=== PATIENT | female | born 1945 | race Caucasian/White ===

== ENCOUNTER 2019-05-19 08:12 | Day surgery (SDC) | payer OTHER ==
[2019-05-14 11:15] VITALS: BMI 29.7
[2019-05-19] MEDS: CYCLOPENTOLATE HCL 1% OPHTH SOLN 2 ML BOTTLE ONE ×4 (08:50→09:05)
[2019-05-19] MEDS: OFLOXACIN 0.3% OPHTHALMIC SOLUTION 5 ML BOTTLE ONE ×4 (08:50→09:05)
[2019-05-19] MEDS: PHENYLEPHRINE 2.5% OPHTH SOLN 15 ML BOTTLE ONE ×4 (08:50→09:05)
[2019-05-19] MEDS: KETOROLAC TROMETHAMINE 0.5% EYE DROP 1 DROP DROPS ONE ×4 (08:50→09:05)
[2019-05-19] MEDS: TROPICAMIDE 1% OPHTH SOLN 15 ML BOTTLE ONE ×4 (08:50→09:05)
[2019-05-19] MEDS ORDERED: ACETAMINOPHEN 325 MG TABLET (FP) PO PRN (09:33)
[2019-05-19] MEDS ORDERED: EPI-SHUGARCAINE (EPINEPHRINE 0.025% & LIDOCAINE-PF 0.75%) 4ML ONE (12:24)
[2019-05-19] MEDS ORDERED: MIDAZOLAM HCL 2 MG/2 ML SINGLE DOSE VIAL ONE (12:35)
[2019-05-19] MEDS ORDERED: PROPOFOL 20 ML ONE (12:35)
[2019-05-19] MEDS ORDERED: ACETYLCHOLINE 1:100 INTRA-OCUL 20 MG/2 ML KIT ONE (12:42)
[2019-05-19] MEDS ORDERED: ONDANSETRON 4 MG/2 ML VIAL IVPUSH PRN (13:17)
[2019-05-19] MEDS ORDERED: LACTATED RINGERS SOLUTION 1,000 ML IV SCH (13:30)
[2019-05-19] MEDS ORDERED: ACETAMINOPHEN 325 MG TABLET (FP) ONE (14:27)
--- NOTE | 2019-05-19 14:36 | OP ---
DATE OF OPERATION: 05/19/2019 PROCEDURE: Planned extracapsular cataract extraction, phacoemulsification, insertion of posterior chamber lens implant, right eye. SURGEON: Vasyl Suarez MD MICA PATCHER SURGEON: Vasyl Suarez MD ANESTHESIA: Local with standby. NURSE BINDER TECHNICIAN: Weston Hopkins CRNA ATTENDING ANESTHESIOLOGIST: Alonso Jones MD COMPLICATIONS: None. PREOPERATIVE DIAGNOSIS: Cataract, right eye. POSTOPERATIVE DIAGNOSIS: Cataract, right eye. FINDINGS/PROCEDURE: After successful peribulbar block anesthesia, digital massage was given to soften the right eye. The patient was prepped and draped in the usual manner to expose the right eye. Lid speculum was inserted, and the microscope was in position over the eye. It should be noted Tegaderm strips were placed on the eyelashes prior to the placement of the speculum. Superior fornix-based flap was then fashioned for 12 mm with Althea scissors and 0.12 forceps. Hemostasis achieved with Wet-Field cautery. Limbal grill was fashioned for 3 mm and dissected anterior into clear cornea. A 3-mm blade was used to enter the anterior chamber. Under Viscoat, a 360-degree anterior capsulotomy was performed, and the leaflet removed from the eye and phacoemulsification of the entire nucleus was then done in approximately 2 minutes time followed by irrigation, aspiration of all cortical material leaving intact posterior capsule and red reflex present. The implant was inspected carefully with the microscope. Found to be free of defects, debris, and flaws. Irrigated thoroughly with BSS. Placed such that the inferior haptic was in the inferior capsular bag and superior haptic in the superior capsular bag and rotated in a horizontal position with a Sinskey hook. The Provisc was aspirated out replaced with Miochol, Miostat, and BSS, and 2 interrupted 2-0 Ethilon sutures were closed the wound down and tested leak for the leakage, and none was found. Conjunctival tenon flap was reapproximated. At this point, the implant was fixated and the capsular bag centrally located with a round pupil, entire posterior capsule, and red reflex present. Topical Betoptic S and Maxitrol ophthalmic suspensions were placed as was bacitracin and polymyxin B ophthalmic ointment. The patch and shield were then placed on the closed eyelids and the patient was then discharged from the operating room to the recovery area in good condition having tolerated the procedure well. Brenda SHIRLEY/[id number]
[2019-05-19 14:39] VITALS: TEMP 97.6
[2019-05-19 15:22] VITALS: BP 139/61; PULSE 54
== END 2019-05-19 15:00 | disposition home or self-care (01) ==
LOC: FASU 08:12
PROVIDERS: ATTEND Ophthalmology
PROC: 08RJ3JZ Replacement of Right Lens with Synthetic Substitute, Percutaneous Approach (ICD-10-PCS; principal; 2019-05-19 12:52)
DX: H26.9 Unspecified cataract (principal)
CPT/HCPCS: 82962